=== PATIENT | female | born 1990 | race Caucasian/White ===

== ENCOUNTER 2017-11-21 10:29 | Emergency (ER) | payer BC, OTHER ==
[~2017-11-21] VITALS: Ht 162.6 cm; Wt 158.8 kg
[~2017-11-21 10:29] MED LIST: ACETAMINOPHEN325 M1 PO; HYDROCODON-ACE1 EAC7 PO; METFORMIN HCL500 M2 PO; SENNA S TABLET1 EACH PO; XANAX 0.5 MG0.5 M1 PO; ZOFRAN4 MG PO; ZOLOFT100 MG PO
[2017-11-21] MEDS ORDERED: MEDROLDOSEPACK PO (11:11)
== END 2017-11-21 11:15 | disposition home or self-care (01) ==
LOC: ER 10:29
DX: T78.49XA Other allergy, initial encounter (principal); X58.XXXA Exposure to other specified factors, initial encounter